=== PATIENT | female | born 1940 | race Hispanic/Latino ===

== ENCOUNTER 2021-09-29 05:54 | Day surgery (SDC) | payer MEDICARE ==
[2021-09-25 12:02] LABS: BASOPHILS % (AUTO) 0.8 % (0.0-5.0); EOSINOPHILS % (AUTO) 3.6 % (0.0-8.0); LYMPHOCYTES % (AUTO) 23.5 % (21.0-51.0); MEAN CORPUSCULAR HEMOGLOBIN 28.4 pg (27.0-33.0); MEAN CORPUSCULAR HGB CONC 31.7 g/dL (32.0-36.0); MEAN CORPUSCULAR VOLUME 89.6 fL (79-99); MONOCYTES % (AUTO) 9.7 % (3.0-13.0); NEUTROPHILS % (AUTO) 61.9 % (40.0-77.0); PLATELET COUNT (AUTO) 364 K/uL (130-400); RED BLOOD CELL COUNT(AUTO) 4.02 MIL/uL (4.00-5.50); RED CELL DISTRIBUTION WIDTH 13.8 % (11.0-15.5)
[2021-09-25 12:13] LABS: PROTHROMBIN TIME 10.9 SEC (9.6-11.6)
[2021-09-25 12:15] LABS: CREATININE 1.3 mg/dL (0.5-1.5); PARTIAL THROMBOPLASTIN TIME 27.1 SEC (26.3-35.5); POTASSIUM 4.6 mmol/L (3.5-5.1)
[2021-09-25 12:27] LABS: B-TYPE NATRIURETIC PEPTIDE 111 pg/mL (0-100)
[2021-09-25 12:49] LABS: APPEARANCE,URINE CLOUDY (CLEAR); BILIRUBIN,URINE NEGATIVE (NEGATIVE); COLOR,URINE YELLOW (YELLOW); GLUCOSE, URINE (UA) NEGATIVE (NEGATIVE); KETONES,URINE NEGATIVE (NEGATIVE); LEUKOCYTE ESTERASE ,URINE LARGE (NEGATIVE); NITRATE,URINE NEGATIVE (NEGATIVE); OCCULT BLOOD,URINE SMALL (NEGATIVE); PH,URINE 5.5 (5.0-8.0); PROTEIN,URINE NEGATIVE (NEGATIVE); UROBILINOGEN,URINE 0.2 mg/dL (0.2-1.0)
[2021-09-25 12:51] LABS: BACTERIA,URINE Rare /HPF (None Seen); RBC,URINE 0-1 /HPF (0-1); SQUAMOUS EPITHELIAL CELL,UR Rare /HPF (0-2); WBC,URINE >100 /HPF (0-1)
[2021-09-26 09:26] VITALS: BP 174/62
[2021-09-29] VITALS (11 sets, daily range): BP systolic 110–176; BP diastolic 41–76
[~2021-09-29] VITALS: Ht 157.5 cm; Wt 65.2 kg
[~2021-09-29 05:54] MED LIST: AEC81 PO; AMLO-257 PO; ESCI-8 PO; EZET10TA13 PO; HYDR200T4 PO; LEVO88CA4 PO; LORA10TA7 PO; MELO-108 PO; METO-391 PO; NITR0.4T50 SL; RANO500T3 PO; ZENPEP PO
[2021-09-29 06:12] LABS: BASOPHILS % (AUTO) 0.6 % (0.0-5.0); EOSINOPHILS % (AUTO) 4.7 % (0.0-8.0); HEMATOCRIT 36.3 % (36-48); MEAN CORPUSCULAR HEMOGLOBIN 28.2 pg (27.0-33.0); MEAN CORPUSCULAR HGB CONC 31.1 g/dL (32.0-36.0); MEAN CORPUSCULAR VOLUME 90.5 fL (79-99); MONOCYTES % (AUTO) 11.1 % (3.0-13.0); NEUTROPHILS % (AUTO) 64.2 % (40.0-77.0); PLATELET COUNT (AUTO) 327 K/uL (130-400); RED BLOOD CELL COUNT(AUTO) 4.01 MIL/uL (4.00-5.50); RED CELL DISTRIBUTION WIDTH 13.7 % (11.0-15.5); WHITE BLOOD COUNT (AUTO) 15.6 K/uL (4.8-10.8)
[2021-09-29] MEDS ORDERED: 0.9%NACL 1000ML 1,000 ML IV ONE (06:39)
[2021-09-29] MEDS ORDERED: IOHEXOL 350 MG/ML 100ML INFUS..BTL IV ONE ×2 (07:26→07:48)
[2021-09-29] MEDS ORDERED: HEPARIN 10,000 UNIT/10ML (1,000 UNIT/ML) VIAL ONE (07:26)
[2021-09-29] MEDS ORDERED: LIDOCAINE HCL 400MG/20ML VIAL ONE (07:26)
[2021-09-29] MEDS ORDERED: NITROGLYCERIN 50MG VIAL ONE (07:26)
[2021-09-29] MEDS ORDERED: MEPERIDINE-PF 25 MG/ML SYG ONE ×2 (07:29→07:56)
[2021-09-29] MEDS ORDERED: SODIUM BICARB 50MEQ 50ML VIAL 50 ML ONE (07:29)
[2021-09-29] MEDS ORDERED: MIDAZOLAM HCL 1 MG/ML 2ML VIAL ONE ×2 (07:29→07:56)
[2021-09-29] MEDS ORDERED: IOHEXOL-350 50ML VIAL IV ONE (08:00)
[2021-09-29] MEDS ORDERED: 0.9%NACL 1000ML 1,000 ML IV SCH (08:30)
== END 2021-09-29 13:45 | disposition home or self-care (01) ==
LOC: DAH 05:54
PROVIDERS: ATTEND Internal Medicine Cardiovascular Disease
DX: I25.119 Atherosclerotic heart disease of native coronary artery with unspecified angina pectoris (principal); I25.2 Old myocardial infarction; I44.7 Left bundle-branch block, unspecified; I10 Essential (primary) hypertension; M06.9 Rheumatoid arthritis, unspecified; Z98.890 Other specified postprocedural states; Z98.51 Tubal ligation status; Z90.49 Acquired absence of other specified parts of digestive tract; Z88.6 Allergy status to analgesic agent; Z88.3 Allergy status to other anti-infective agents; Z79.899 Other long term (current) drug therapy; Z79.82 Long term (current) use of aspirin; Z79.01 Long term (current) use of anticoagulants; Z95.1 Presence of aortocoronary bypass graft
CPT/HCPCS: 80048; 83880; 85025 ×2; 85610; 85730; 87077; 87088; 87186; 81001; 36415 ×2; 71045; 93005; 93459; C1894; C1760; J3490 ×3; J7030; J2250 ×2; J2175 ×2; J1644; Q9967 ×2; A4215; A4222; A4221; A4663; A4216; A4606; Q9965; A4223 ×3; 99156; 99157

== ENCOUNTER → 2024-02-18 | Outpatient (CLI) | payer MEDICARE ==
[~2024-02-18] MED LIST changes: -EZET10TA13 PO; +EZET10TA81 PO; -HYDR200T4 PO; +HYDR200T75 PO; +IOHEXOL 350 MG/ML 100ML INFUS..BTL IV ONE
--- NOTE | 2024-02-18 10:30 | HMCIMG ---
CT CARDIAC ANGIO W/CONT. CCTA HISTORY: Coronary artery disease COMPARISON: None TECHNIQUE: Multiple sequential axial images of the chest were obtained along with the CT angiogram of the chest study. Patient was given 100 cc of Omnipaque through intravenous route. FINDINGS: There is no evidence of pulmonary nodule or parenchymal disease. No pleural effusion or pericardial effusion is seen. There is no evidence of pneumothorax. There are normal size mediastinal and hilar lymph nodes. The heart is enlarged. Coronary a arterial calcifications are seen. Degenerative changes of the thoracolumbar spine are present. IMPRESSION: 1. No evidence of pulmonary nodule or effusion is seen. Please see CT angiogram report of coronary arteries.
--- NOTE | 2024-02-21 10:56 | CARDIOLOGY ---
RAD REPORT: [facility] ANGIO RADIOLOGY REPORT: CORONARY CT ANGIOGRAPHY DATE: Feb 21, 2024 QUALITY: Excellent CLINICAL HISTORY AND INDICATION: [coronary artery bypass graft patency ] TECHNIQUE: After obtaining a preliminary senior care provider image, contrast imaging performed on an [employer] [id number] scanner. A dedicated, limited window, coronary imaging protocol was used, with single breath-hold, retrospective ECG gating, and automated arrhythmia rejection. 100 cc of low osmolar contrast agent: Omnipaque 350 was delivered via a 18-gauge IV catheter in the right antecubital fossa, using a power injector and followed by 60 cc of normal saline bolus as a chaser. Collimated images were reformatted at 0.5 mm intervals, and sent to an offline independent workstation for interpretation, using 3D anatomic reconstructions: Curved multiplanar reconstructions, maximum intensity projections, and multiplanar imaging. No metoprolol was administered prior to scanning due to low baseline heart rate. 0.8 mg SL nitroglycerin was given. CORONARY ARTERY DESCRIPTIONS: The coronary arteries arise in normal position. Left main coronary artery: Normal caliber vessel that trifurcates into the LAD, ramus and LCx. Left anterior descending coronary artery: Normal caliber vessel and gives rise to diagonal and septal branches. Severe ostial/proximal LAD stenosis. Ramus intermedius artery: Normal caliber with several branches. Left circumflex coronary artery: Normal caliber, nondominant and gives rise to a large OM branch. The OM branch is heavily calcified. Right coronary artery: Large, dominant vessel giving rise to the PL and PDA branches. No stenosis. CORONARY ARTERY BYPASS GRAFT DESCRIPTIONS: Patent LARSON to LAD. Patent SVG to ramus. Thoracic Aorta: Normal diameter. Angie Hernandez MD [facility] ANGIE HERNANDEZ MD Feb 21, 2024 10:56
== END | disposition home or self-care (01) ==
LOC: RAH 07:47
PROVIDERS: ATTEND Internal Medicine Cardiovascular Disease
DX: I25.119 Atherosclerotic heart disease of native coronary artery with unspecified angina pectoris (principal); M47.815 Spondylosis without myelopathy or radiculopathy, thoracolumbar region; Z95.1 Presence of aortocoronary bypass graft
CPT/HCPCS: 75574; Q9967